=== PATIENT | male | born 1955 | race American Indian/Alaskan Native ===

== ENCOUNTER 2016-08-03 07:55 | Emergency (ER) | payer MEDICARE ==
--- NOTE | 2016-08-03 08:24 | Emergency Department Report ---
HPI - General Time Seen by Provider: 08/03/16 08:16 - HPI HPI: Room 2 The patient is a 60-year-old male presenting with a chief complaint cardiac arrest. Per EMS the patient complained of having difficulty breathing and then was a witnessed collapse at home. EMS was called and arrived on scene 07:315 the patient unresponsive and in V. fib. Patient was intubated and then defibrillated multiple times, administered epinephrine 3 and sodium bicarbonate 1. Upon arrival to the ED in the patient remained in V. fib and ACLS protocols were continued Location: Cardiovascular system Duration: [see above] Quality: V. fib Severity: Severe Modifying factors: [see above] Context: [see above] Mode of transportation: [not driving] ED Past Medical Hx - Past Medical History Hx Hypertension: Yes Hx Diabetes: Yes - Surgical History Hx Coronary Stent: Yes Additional Surgical History: Back Surgery - Family History Family history: no significant - Social History Smoking Status: Unknown if ever smoked Substance Use Type: None - Medications Home Medications: Home Medications Medication Instructions Recorded Confirmed Last Taken Type HYDROcodone/APAP 5-325 [[place] 2 each PO Q6HR PRN #20 tablet 04/23/15 Unknown Rx 5/325] Sulfamethoxazole/Trimethoprim 1 each PO BID #14 tablet 04/23/15 Unknown Rx [Bactrim DS TAB] ED Review of Systems ROS: Stated complaint: CARDIAC ARREST Other details as noted in HPI Comment: Unobtainable due to pts medical conditions Physical Exam - Physical Exam Physical Exam: GENERAL: The patient is well-developed well-nourished male lying on stretcher receiving chest compressions from EMS and being bagged via ET tube. [] HEENT: Normocephalic. Atraumatic. Pupils 5 mm and nonreactive NECK: Trachea midline CHEST/LUNGS: No spontaneous respirations. Breath sounds equal laterally with bagging HEART/CARDIOVASCULAR: No heart sounds ABDOMEN: Abdomen is soft. SKIN: There is no rash. There is no edema. There is no diaphoresis. NEURO: GCS 3T MUSCULOSKELETAL: There is no evidence of acute injury. ED Medical Decision Making - Differential Diagnosis cardiac arrest Critical care attestation.: If time is entered above; I have spent that time in minutes in the direct care of this critically ill patient, excluding procedure time. ED Disposition Clinical Impression: Cardiac arrest Disposition: MEDICAL FACILITY Is pt being admited?: No Does the pt Need Aspirin: No Condition: Poor Referrals: PRIMARY CARE, [Primary Care Provider] - 3-5 Days Time of Disposition: 08:17 (patient )
[2016-08-03] MEDS ORDERED: MAGNESIUM SULFATE ONE (19:24)
[2016-08-03] MEDS ORDERED: CORDARONE IV ONE (19:24)
[2016-08-03] MEDS ORDERED: ADRENALIN ONE (19:24)
[2016-08-03] MEDS ORDERED: XYLOCAINE CARDIAC IV ONE (19:24)
[2016-08-03] MEDS ORDERED: INTROPIN DRIP 800 MG/D5W 250 ML IV ONE (19:24)
== END 2016-08-03 12:10 ==
LOC: ED 07:59
DX: I46.9 Cardiac arrest, cause unspecified (principal); I10 Essential (primary) hypertension; E11.9 Type 2 diabetes mellitus without complications
CPT/HCPCS: 92950; 99285; J0171; J0282; J1265; J2001; J3475